=== PATIENT | female | born 2000 | race Caucasian/White ===

== ENCOUNTER 2023-01-13 19:49 | Emergency (ER) | payer BC ==
[~2023-01-13] VITALS: Ht 165.1 cm; Wt 60.3 kg
[2023-01-13 20:01] VITALS: BP_SYST 113; PULSE 102; RESP 17; TEMP 98.3; O2SAT 98
[2023-01-13] MEDS ORDERED: DIPHTH,PERTUSS(ACELL),TET VAC 0.5 ML VIAL (Tdap) I.M. ONE (20:30)
[2023-01-13] MEDS ORDERED: BACITRACIN 1 GM OINT TP ONE (20:30)
[2023-01-13] MEDS ORDERED: CLIN-22 PO ×2 (20:34→21:03)
[2023-01-13 20:44] VITALS: TEMP 98.3
[2023-01-13 21:06] VITALS: BP_SYST 113; PULSE 111; RESP 17; O2SAT 99
== END 2023-01-13 21:06 | disposition home or self-care (01) ==
LOC: SED 19:49
DX: S00.81XA Abrasion of other part of head, initial encounter (principal); Z79.899 Other long term (current) drug therapy; W01.0XXA Fall on same level from slipping, tripping and stumbling without subsequent striking against object, initial encounter; Y93.89 Activity, other specified; Y92.89 Other specified places as the place of occurrence of the external cause; Y99.8 Other external cause status
CPT/HCPCS: 90715; 99283